=== PATIENT | female | born 1965 | race Two or more races ===

== ENCOUNTER → 2017-04-24 | Emergency (ER) | payer OTHER ==
[~2017-04-24] VITALS: Ht 157.5 cm; Wt 81.6 kg
[~2017-04-24] MED LIST: ADULT ASPIRIN81 MG; DICY20TA PO; DILTIAZEM 24HR120 MG PO; LOSARTAN-HCTZ1 EAC1 PO; METOCLOPRAMIDE10 MG PO; OMEPRAZOLE20 MG PO; RANITIDINE HCL300 MG PO; TERAZOSIN HCL2 M1; TOPROL XL50 M1; TUSSI PRES-B L120 M1 PO; ZITHROMAX200 MG PO
== END | disposition home or self-care (01) ==
LOC: ER 07:37
DX: B34.9 Viral infection, unspecified (principal); G89.11 Acute pain due to trauma; M25.541 Pain in joints of right hand; M79.644 Pain in right finger(s); J11.1 Influenza due to unidentified influenza virus with other respiratory manifestations

== ENCOUNTER 2017-09-20 20:32 | Emergency (ER) | payer OTHER ==
[~2017-09-20] VITALS: Ht 157.5 cm; Wt 99.8 kg
[2017-09-20] MEDS ORDERED: AMLODIPINE BESY10 MG (21:05)
== END 2017-09-20 21:31 | disposition home or self-care (01) ==
LOC: ER 20:32
DX: H10.89 Other conjunctivitis (principal)

== ENCOUNTER 2017-09-24 10:04 | Emergency (ER) | payer OTHER ==
[~2017-09-24] VITALS: Ht 157.5 cm; Wt 99.8 kg
[~2017-09-24 10:04] MED LIST changes: +AMLODIPINE BESY10 MG
== END 2017-09-24 11:19 | disposition home or self-care (01) ==
LOC: ER 10:04
DX: H10.89 Other conjunctivitis (principal)

== ENCOUNTER 2017-11-04 09:25 | Emergency (ER) | payer OTHER ==
[~2017-11-04] VITALS: Ht 157.5 cm; Wt 90.7 kg
[2017-11-04] MEDS ORDERED: CARDURA8 MG (09:45)
== END 2017-11-04 14:04 | disposition home or self-care (01) ==
LOC: ER 09:25
DX: R60.0 Localized edema (principal)

== ENCOUNTER 2018-01-31 08:22 | Outpatient (CLI) | payer OTHER ==
[~2018-01-31 08:22] MED LIST changes: +CARDURA8 MG
[2018-01-31] MEDS ORDERED: HYDROCHLOROTH12.5 M1 PO (09:54)
== END 2018-01-31 08:34 | disposition home or self-care (01) ==
LOC: TOM 08:22
DX: I02.0 Rheumatic chorea with heart involvement (principal)
CPT/HCPCS: 70450; 70496; Q9965

== ENCOUNTER 2018-01-31 09:39 | Emergency (ER) | payer OTHER ==
[~2018-01-31] VITALS: Ht 157.5 cm; Wt 90.7 kg
[2018-01-31] MEDS ORDERED: HYDROCHLOROTH12.5 M1 PO (09:54)
== END 2018-01-31 12:12 | disposition home or self-care (01) ==
LOC: ER 09:39
DX: R60.0 Localized edema (principal)

== ENCOUNTER 2018-03-26 08:34 | Emergency (ER) | payer OTHER ==
[~2018-03-26] VITALS: Ht 157.5 cm; Wt 90.7 kg
[~2018-03-26 08:34] MED LIST changes: +HYDROCHLOROTH12.5 M1 PO
[2018-03-26] MEDS ORDERED: ZITHROMAX500 MG PO (10:09)
== END 2018-03-26 10:14 | disposition home or self-care (01) ==
LOC: ER 08:34
DX: B34.9 Viral infection, unspecified (principal); J11.1 Influenza due to unidentified influenza virus with other respiratory manifestations

== ENCOUNTER 2018-04-05 14:18 | Emergency (ER) | payer OTHER ==
[~2018-04-05] VITALS: Ht 157.5 cm; Wt 99.8 kg
[~2018-04-05 14:18] MED LIST changes: +ZITHROMAX500 MG PO
== END 2018-04-05 18:50 | disposition home or self-care (01) ==
LOC: ER 14:18
DX: B34.9 Viral infection, unspecified (principal); J11.1 Influenza due to unidentified influenza virus with other respiratory manifestations

== ENCOUNTER 2018-06-15 08:08 | Emergency (ER) | payer OTHER ==
[~2018-06-15] VITALS: Ht 162.6 cm; Wt 90.7 kg
[2018-06-15] MEDS ORDERED: ASPIR 8181 MG PO (08:37)
[2018-06-15] MEDS ORDERED: METFORMIN HCL500 MG PO (08:37)
[2018-06-15] MEDS ORDERED: COZAAR50 MG PO (08:38)
[2018-06-15] MEDS ORDERED: TOPROL XL50 M1 PO (08:38)
[2018-06-15] MEDS ORDERED: DOXAZOSIN MESYLA4 MG PO (08:38)
== END 2018-06-15 14:14 | disposition home or self-care (01) ==
LOC: ER 08:08
DX: I16.0 Hypertensive urgency (principal); I10 Essential (primary) hypertension

== ENCOUNTER 2018-09-30 16:46 | Emergency (ER) | payer OTHER ==
[~2018-09-30] VITALS: Ht 157.5 cm; Wt 90.7 kg
[~2018-09-30 16:46] MED LIST changes: +ASPIR 8181 MG PO; +COZAAR50 MG PO; +DOXAZOSIN MESYLA4 MG PO; +METFORMIN HCL500 MG PO; +TOPROL XL50 M1 PO
[2018-09-30] MEDS ORDERED: LIPITOR20 MG (17:04)
[2018-09-30] MEDS ORDERED: ZITHROMAX500 MG PO (20:26)
[2018-09-30] MEDS ORDERED: MUCINEX DM ER1 EAC1 PO (20:26)
[2018-09-30] MEDS ORDERED: FLONASE ALLERG9.9 ML NASAL (20:26)
[2018-09-30] MEDS ORDERED: TESSALON PERLE100 M1 PO (20:26)
== END 2018-09-30 20:44 ==
LOC: ER 16:46
DX: B96.0 Mycoplasma pneumoniae [M. pneumoniae] as the cause of diseases classified elsewhere (principal); J32.8 Other chronic sinusitis; B34.9 Viral infection, unspecified

== ENCOUNTER 2018-12-21 10:59 | Emergency (ER) | payer OTHER ==
[~2018-12-21] VITALS: Ht 157.5 cm; Wt 98.9 kg
[~2018-12-21 10:59] MED LIST changes: +FLONASE ALLERG9.9 ML NASAL; +LIPITOR20 MG; +MUCINEX DM ER1 EAC1 PO; +TESSALON PERLE100 M1 PO
[2018-12-21] MEDS ORDERED: DICLOFENAC SODI75 MG PO (11:41)
== END 2018-12-21 12:24 | disposition home or self-care (01) ==
LOC: ER 10:59
DX: M25.561 Pain in right knee (principal)

== ENCOUNTER 2019-01-03 07:59 | Emergency (ER) | payer OTHER ==
[~2019-01-03] VITALS: Ht 157.5 cm; Wt 98.9 kg
[~2019-01-03 07:59] MED LIST changes: +DICLOFENAC SODI75 MG PO
[2019-01-03] MEDS ORDERED: ATACAND32 MG (08:09)
[2019-01-03] MEDS ORDERED: GRALISE600 MG (08:09)
== END 2019-01-03 11:30 | disposition home or self-care (01) ==
LOC: ER 07:59
DX: M25.561 Pain in right knee (principal)

== ENCOUNTER 2019-02-18 08:40 | Outpatient (CLI) | payer OTHER ==
[~2019-02-18 08:40] MED LIST changes: +ATACAND32 MG; +GRALISE600 MG
== END 2019-02-18 08:58 | disposition home or self-care (01) ==
LOC: LAB 08:40
DX: N20.0 Calculus of kidney (principal)

== ENCOUNTER 2019-02-18 09:09 | Outpatient (CLI) | payer OTHER | END 2019-02-18 09:18 | disposition home or self-care (01) | LOC: TOM 09:09 | DX: I60.01 Nontraumatic subarachnoid hemorrhage from right carotid siphon and bifurcation (principal) | CPT/HCPCS: 70496; Q9965 ==

== ENCOUNTER 2019-04-11 12:18 | Outpatient (CLI) | payer OTHER | END 2019-04-11 12:23 | disposition home or self-care (01) | LOC: SONOGRAMA 12:18 | DX: M75.101 Unspecified rotator cuff tear or rupture of right shoulder, not specified as traumatic (principal) ==

== ENCOUNTER 2020-04-27 09:27 | Emergency (ER) | payer OTHER ==
[~2020-04-27] VITALS: Ht 157.5 cm; Wt 90.7 kg
[2020-04-27] MEDS ORDERED: NORFLEX100MG PO (11:30)
[2020-04-27] MEDS ORDERED: KETO10TA2 PO (11:30)
== END 2020-04-27 11:45 | disposition home or self-care (01) ==
LOC: ER 09:27
DX: S83.8X2A Sprain of other specified parts of left knee, initial encounter (principal); X50.0XXA Overexertion from strenuous movement or load, initial encounter; Y93.89 Activity, other specified; Y92.098 Other place in other non-institutional residence as the place of occurrence of the external cause; Y99.8 Other external cause status

== ENCOUNTER → 2020-05-19 | Emergency (ER) | payer OTHER ==
[~2020-05-19] VITALS: Ht 157.5 cm; Wt 99.8 kg
[~2020-05-19] MED LIST changes: +ATORVASTATIN CA20 MG; +DICLOFENAC POTA50 MG PO; +GLIMEPIRIDE4 M1; +KETO10TA2 PO; +NORFLEX100MG PO
== END | disposition home or self-care (01) ==
LOC: ER 12:35
DX: S80.02XA Contusion of left knee, initial encounter (principal); S80.01XA Contusion of right knee, initial encounter; W18.39XA Other fall on same level, initial encounter; Y93.89 Activity, other specified; Y92.238 Other place in hospital as the place of occurrence of the external cause; Y99.8 Other external cause status; M17.0 Bilateral primary osteoarthritis of knee; M25.552 Pain in left hip; I16.0 Hypertensive urgency; I10 Essential (primary) hypertension

== ENCOUNTER 2020-09-01 10:20 | Emergency (ER) | payer OTHER ==
[~2020-09-01] VITALS: Ht 157.5 cm; Wt 99.8 kg
[2020-09-01] MEDS ORDERED: NORFLEX100MG PO (14:56)
[2020-09-01] MEDS ORDERED: KETO10TA2 PO (14:56)
== END 2020-09-01 15:01 | disposition home or self-care (01) ==
LOC: ER 10:20
DX: I87.2 Venous insufficiency (chronic) (peripheral) (principal); M25.562 Pain in left knee; M17.12 Unilateral primary osteoarthritis, left knee; I73.9 Peripheral vascular disease, unspecified

== ENCOUNTER 2020-09-01 13:21 | Outpatient (CLI) | payer OTHER ==
[2020-09-01] MEDS ORDERED: KETO10TA2 PO (14:56)
[2020-09-01] MEDS ORDERED: NORFLEX100MG PO (14:56)
== END 2020-09-01 13:24 | disposition home or self-care (01) ==
LOC: NUCLEAR 13:21
PROVIDERS: ATTEND Orthopaedic Surgery
DX: M81.0 Age-related osteoporosis without current pathological fracture (principal)

== ENCOUNTER → 2020-09-16 10:45 | Outpatient (CLI) | payer OTHER | END | disposition home or self-care (01) | LOC: LAB 10:45 | PROVIDERS: ATTEND Orthopaedic Surgery | DX: E55.9 Vitamin D deficiency, unspecified (principal); M85.9 Disorder of bone density and structure, unspecified; E56.1 Deficiency of vitamin K ==

== ENCOUNTER 2020-12-14 09:23 | Outpatient (CLI) | payer OTHER | END 2020-12-14 09:37 | disposition home or self-care (01) | LOC: MAMO-SONO 09:23 | PROVIDERS: ATTEND Specialist | DX: D24.1 Benign neoplasm of right breast (principal); D24.2 Benign neoplasm of left breast; Z12.31 Encounter for screening mammogram for malignant neoplasm of breast ==

== ENCOUNTER 2021-01-22 09:47 | Outpatient (CLI) | payer OTHER | END 2021-01-22 10:02 | disposition home or self-care (01) | LOC: MAMO-SONO 09:47 | PROVIDERS: ATTEND Surgery | DX: N60.01 Solitary cyst of right breast (principal); N60.11 Diffuse cystic mastopathy of right breast; N60.12 Diffuse cystic mastopathy of left breast; R92.0 Mammographic microcalcification found on diagnostic imaging of breast ==

== ENCOUNTER 2021-03-18 09:00 | Emergency (ER) | payer OTHER ==
[~2021-03-18] VITALS: Ht 157.5 cm; Wt 102.1 kg
== END 2021-03-18 11:08 | disposition home or self-care (01) ==
LOC: ER 09:00
DX: B34.9 Viral infection, unspecified (principal); Z03.818 Encounter for observation for suspected exposure to other biological agents ruled out; R53.81 Other malaise; R05.9 Cough, unspecified

== ENCOUNTER 2021-04-02 12:54 | Outpatient (CLI) | payer OTHER | END 2021-04-02 12:59 | disposition home or self-care (01) | LOC: RAD 12:54 | PROVIDERS: ATTEND Orthopaedic Surgery | DX: M17.0 Bilateral primary osteoarthritis of knee (principal) ==

== ENCOUNTER 2021-06-27 11:47 | Emergency (ER) | payer OTHER ==
[~2021-06-27] VITALS: Ht 157.5 cm; Wt 99.8 kg
[2021-06-27] MEDS ORDERED: LOSARTAN-HCTZ1 EAC1 PO (12:23)
[2021-06-27] MEDS ORDERED: EZETIMIBE10 MG PO (12:24)
[2021-06-27] MEDS ORDERED: NORFLEX100MG PO (13:30)
[2021-06-27] MEDS ORDERED: KETO10TA2 PO (13:30)
== END 2021-06-27 13:56 | disposition home or self-care (01) ==
LOC: ER 11:47
DX: M25.562 Pain in left knee (principal)

== ENCOUNTER 2021-08-06 09:40 | Emergency (ER) | payer OTHER ==
[~2021-08-06] VITALS: Ht 157.5 cm; Wt 99.8 kg
[~2021-08-06 09:40] MED LIST changes: +EZETIMIBE10 MG PO
[2021-08-06] MEDS ORDERED: DOXAZOSIN MESYLA4 MG PO (10:30)
[2021-08-06] MEDS ORDERED: LOSARTAN-HCTZ1 EAC1 PO (10:32)
[2021-08-06] MEDS ORDERED: TOPROL XL50 M1 (10:32)
[2021-08-06] MEDS ORDERED: TRADJENTA5 MG PO (10:33)
[2021-08-06] MEDS ORDERED: ATORVASTATIN CA10 MG PO (10:33)
[2021-08-06] MEDS ORDERED: EZETIMIBE10 MG PO (10:33)
[2021-08-06] MEDS ORDERED: AMLODIPINE-OLM1 EAC2 (10:34)
== END 2021-08-06 11:26 | disposition home or self-care (01) ==
LOC: ER 09:40
DX: S80.02XA Contusion of left knee, initial encounter (principal); S60.512A Abrasion of left hand, initial encounter; W18.30XA Fall on same level, unspecified, initial encounter; Y93.01 Activity, walking, marching and hiking; Y92.480 Sidewalk as the place of occurrence of the external cause; E11.9 Type 2 diabetes mellitus without complications; Z79.84 Long term (current) use of oral hypoglycemic drugs; I10 Essential (primary) hypertension

== ENCOUNTER 2021-09-03 11:08 | Emergency (ER) | payer OTHER ==
[~2021-09-03] VITALS: Ht 157.5 cm; Wt 108.9 kg
[~2021-09-03 11:08] MED LIST changes: +AMLODIPINE-OLM1 EAC2; +ATORVASTATIN CA10 MG PO; +TRADJENTA5 MG PO
[2021-09-03] MEDS ORDERED: VISTARIL25 MG PO (13:24)
== END 2021-09-03 13:31 | disposition home or self-care (01) ==
LOC: ER 11:08
DX: R51.9 Headache, unspecified (principal); I10 Essential (primary) hypertension; F41.9 Anxiety disorder, unspecified